=== PATIENT | male | born 1995 | race Caucasian/White ===

== ENCOUNTER 2021-03-29 07:29 | Emergency (ER) | payer OTHER ==
[~2021-03-29 07:29] MED LIST: LODINE CAP 300300 MG PO; LOTRIMIN CREAM15 GM TP; NAPROSYN500 MG PO; NORFLEX 100 MG100 MG PO
[2021-03-29] MEDS ORDERED: CEPHALEXIN500 MG PO (08:01)
== END 2021-03-29 08:05 | disposition home or self-care (01) ==
LOC: ER1 07:29
DX: Q64.4 Malformation of urachus (principal); F17.200 Nicotine dependence, unspecified, uncomplicated; Z88.2 Allergy status to sulfonamides
CPT/HCPCS: 99283

== ENCOUNTER 2021-06-11 19:09 | Emergency (ER) | payer OTHER ==
[~2021-06-11 19:09] MED LIST changes: +CEPHALEXIN500 MG PO
== END 2021-06-11 23:00 | disposition left against medical advice (07) ==
LOC: ER1 19:09
DX: R05.9 Cough, unspecified (principal); Z88.2 Allergy status to sulfonamides
CPT/HCPCS: 71045; 99281

== ENCOUNTER 2021-09-21 09:28 | Emergency (ER) | payer OTHER ==
[2021-09-21] MEDS ORDERED: AMOXICILLIN500 M1 PO (10:56)
== END 2021-09-21 11:00 | disposition home or self-care (01) ==
LOC: ER1 09:28
DX: K02.9 Dental caries, unspecified (principal); K05.10 Chronic gingivitis, plaque induced; F17.200 Nicotine dependence, unspecified, uncomplicated; Z88.2 Allergy status to sulfonamides
CPT/HCPCS: 99282